=== PATIENT | female | born 1930 | race Caucasian/White ===

== ENCOUNTER → 2018-06-13 | Outpatient (CLI) | payer OTHER ==
[~2018-06-13] MED LIST: ADULT LOW DOSE81 MG PO; ADVIL PM CAPLE1 EACH PO; BENAZEPRIL HCL20 MG PO; COUMADIN 2.5MG2.5 M1 PO; CYMBALTA30 MG PO; DARVOCET-N 1001 EACH PO; DILTIAZEM 24HR180 MG PO; DILTIAZEM 24HR240 MG PO; DILTIAZEM ER120 M1 PO; FELDENE20 MG PO; FLUZONE 2045 MCG/011; HYDROCODON-ACE1 EACH PO; LIPITOR20 MG PO; OMEPRAZOLE 20 M20 MG PO; PLAVIX 75 MG TA75 MG PO; PNEUMOVAX25 MCG/0.5; PRAMIPEXOLE0.125 MG PO; REQUIP 1 MG TABL1 M1 PO; TRAMADOL HCL50 MG PO; XANAX 0.5 MG0.5 M1 PO
[2018-06-13 11:25] LABS: ALBUMIN 3.9 g/dL (3.4-5.0); ALKALINE PHOSPHATASE 92 U/L (46-116); CHOLESTEROL 176 mg/dL (<200); DIRECT BILIRUBIN 0.1 mg/dL (<0.1-0.3); HDL CHOLESTEROL 49 mg/dL (>40); LDL CHOLESTEROL 108 mg/dL (<100); SERUM ASSESSMENT Clear; SGOT 28 U/L (15-37); SGPT 21 U/L (30-65); TC:HDL 3.6 Ratio (Not establshd); TOTAL BILIRUBIN 0.5 mg/dL (<0.1-1.0); TOTAL PROTEIN 7.1 g/dL (6.4-8.2); TRIGLYCERIDE 95 mg/dL (<150); VLDL 19 mg/dL (<40)
== END ==
LOC: M.LAB 10:49
PROVIDERS: Nurse Practitioner
DX: E78.2 Mixed hyperlipidemia (principal); I10 Essential (primary) hypertension; K21.9 Gastro-esophageal reflux disease without esophagitis

== ENCOUNTER → 2019-02-08 | Outpatient (CLI) | payer OTHER ==
--- NOTE | 2019-02-08 15:39 | 2DMMODE ---
[place] [address] 2 D/M-MODE ECHOCARDIOGRAM Name: KYLEBAKARI Room: [facility]#: [id number] Admission: 02/08/19 Attend Phys: Sukhwinder Maynard, Discharge: Date of : 32 Date of Service: 02/08/19 1539 Report #: [id number] THIS REPORT FOR: //name// APPROVED REPORT Study performed: 02/08/2019 13:06:33 EXAM: Comprehensive 2D, Doppler, and color-flow Echocardiogram Patient Location: Out-Patient BSA: 1.60 HR: 69 bpm BP: 119/79 mmHg Other Information Study Quality: Good Indications Aortic Valve Disease 2D Dimensions IVSd: 13.04 (7-11mm) LVOT Diam: 20.28 (18-24mm) LVDd: 39.94 mm PWd: 7.72 (7-11mm) Ascending Ao: 36.87 (22-36mm) LVDs: 23.82 (25-40mm) Aortic Root: 28.07 mm Volumes Left Atrial Volume (Systole) LA ESV Index: 31.20 mL/m2 Aortic Valve AoV Peak Sohail.: 1.45 m/s AO Peak Gr.: 8.46 mmHg LVOT Max P.61 mmHg AO Mean Gr.: 4.27 mmHg LVOT Mean P.03 mmHg LVOT Max V: 0.81 m/s AO V2 VTI: 29.19 cm LVOT Mean V: 0.45 m/s LOBITO (VTI): 1.85 cm2 LVOT V1 VTI: 16.68 cm AI [place]: 2.06 m/s2 AI PHT: 580.72 ms Mitral Valve MV Decel. Time: 140.89 ms MV E Max Sohail.: 1.02 m/s MV PHT: 40.86 [place] [address] 2 D/M-MODE ECHOCARDIOGRAM Name: BAKARI WRIGHT Room: [facility]#: [id number] Admission: 02/08/19 Attend Phys: Sukhwinder Maynard, Discharge: Date of : 32 Date of Service: 02/08/19 1539 Report #: [id number] MVA (PHT): 5.38 cm2 TDI E/Lateral E': 7.29 E/Medial E': 7.85 Medial E' Sohail.: 0.13 m/s Lateral E' Sohail.: 0.14 m/s Pulmonary Valve PV Peak Sohail.: 0.81 m/s PV Peak Gr.: 2.62 mmHg Tricuspid Valve RAP Estimate: 5.00 mmHg TR Peak Gr.: 26.43 mmHg RVSP: 31.43 mmHg PA Pressure: 31.43 mmHg Left Ventricle The left ventricle is normal size. There is normal LV segmental wall motion. There is normal left ventricular wall thickness. Left ventricular systolic function is normal. The left ventricular ejection fraction is within the normal range. LVEF is 60-65%. The left ventricular diastolic function is normal. Right Ventricle The right ventricle is normal size. The right ventricular systolic function is normal. Atria Left atrium is mildly dilated. Right atrium is mildly dilated. Aortic Valve Aortic valve is mildlty calcified. Mild to moderate aortic regurgitation. There is no aortic valvular stenosis. Mitral Valve The mitral valve is normal in structure. Moderate mitral regurgitation. No evidence of mitral valve stenosis. Tricuspid Valve The tricuspid valve is normal in structure. Mild tricuspid regurgitation. estimated pa pressure 35 mm Hg Pulmonic Valve The pulmonary valve is normal in structure. Mild [place] [address] 2 D/M-MODE ECHOCARDIOGRAM Name: BAKARI WRIGHT Room: [facility]#: [id number] Admission: 02/08/19 Attend Phys: Sukhwinder Maynard, Discharge: Date of : 32 Date of Service: 02/08/19 1539 Report #: [id number] Great Vessels The aortic root is normal in size. IVC is normal in size and collapses >50% with inspiration. Pericardium There is no pericardial effusion. <Conclusion> LVEF is 60-65%. Left atrium is mildly dilated. Right atrium is mildly dilated. Aortic valve is mildlty calcified. Mild to moderate aortic regurgitation. Moderate mitral regurgitation. Mild tricuspid regurgitation. estimated pa pressure 35 mm Hg <ELECTRONICALLY SIGNED> By: Damian Henry MD, [facility] 02/08/19 1539 1539 1539 Damian Henry MD, FACC /INF
== END ==
LOC: M.CRD 12:48
DX: I08.8 Other rheumatic multiple valve diseases (principal); Z88.5 Allergy status to narcotic agent

== ENCOUNTER → 2020-09-24 | Outpatient (CLI) | payer OTHER ==
--- NOTE | 2020-09-24 16:24 | 2DMMODE ---
[place] [address] 2 D/M-MODE ECHOCARDIOGRAM Name: BAKARI WRIGHT Room: [facility]#: [id number] Admission: 09/24/20 Attend Phys: Sukhwinder Maynard, Discharge: Date of : 32 Date of Service: 09/24/20 1624 Report #: [id number] THIS REPORT FOR: cc: Michael Gamez Bradley L. DO Blick,Damian Hancock MD [facility] ~ APPROVED REPORT Study performed: 09/24/2020 13:32:59 EXAM: Comprehensive 2D, Doppler, and color-flow Echocardiogram Patient Location: Out-Patient BSA: 1.60 HR: 80 bpm BP: 127/78 mmHg Other Information Study Quality: Excellent Indications Mitral Valve Disease Atrial Fibrillation 2D Dimensions IVSd: 11.15 (7-11mm) LVOT Diam: 20.01 (18-24mm) LVDd: 37.51 mm PWd: 8.62 (7-11mm) Ascending Ao: 36.12 (22-36mm) LVDs: 21.33 (25-40mm) Aortic Root: 31.94 mm Volumes Left Atrial Volume (Systole) LA ESV Index: 31.60 mL/m2 Aortic Valve AoV Peak Sohail.: 1.53 m/s AO Peak Gr.: 9.37 mmHg LVOT Max P.34 mmHg AO Mean Gr.: 4.97 mmHg LVOT Mean P.42 mmHg LVOT Max V: 0.91 m/s AO V2 VTI: 31.67 cm LVOT Mean V: 0.53 m/s LOBITO (VTI): 1.87 cm2 LVOT V1 VTI: 18.84 cm AI [place]: 2.89 m/s2 AI PHT: 421.34 [place] [address] 2 D/M-MODE ECHOCARDIOGRAM Name: BAKARI WRIGHT Room: [facility]#: [id number] Admission: 09/24/20 Attend Phys: Sukhwinder Maynard, Discharge: Date of : 32 Date of Service: 09/24/20 1624 Report #: [id number] Mitral Valve E/A Ratio: 2.35 MV Decel. Time: 147.11 ms MV E Max Sohail.: 0.96 m/s MV PHT: 42.66 ms MVA (PHT): 5.16 cm2 TDI E/Lateral E': 6.40 E/Medial E': 8.73 Medial E' Sohail.: 0.11 m/s Lateral E' Sohail.: 0.15 m/s Pulmonary Valve PV Peak Sohail.: 0.73 m/s PV Peak Gr.: 2.15 mmHg Tricuspid Valve RAP Estimate: 5.00 mmHg TR Peak Gr.: 26.02 mmHg RVSP: 31.02 mmHg PA Pressure: 31.02 mmHg Left Ventricle The left ventricle is normal size. There is normal LV segmental wall motion. There is normal left ventricular wall thickness. Left ventricular systolic function is normal. The left ventricular ejection fraction is within the normal range. LVEF is 60-65%. This study is not technically sufficient to allow evaluation of the LV diastolic function due to atrial fibrillation. Right Ventricle The right ventricle is normal size. The right ventricular systolic function is normal. Atria Left atrium is mildly dilated. Right atrium is moderately dilated. Aortic Valve Mild aortic valve sclerosis. Moderate aortic regurgitation. There is no aortic valvular stenosis. Mitral Valve Mild mitral annular calcification. The mitral valve is normal in structure. Mild mitral regurgitation. No evidence [place] [address] 2 D/M-MODE ECHOCARDIOGRAM Name: BAKARI WRIGHT Room: [facility]#: [id number] Admission: 09/24/20 Attend Phys: Sukhwinder Maynard, Discharge: Date of : 32 Date of Service: 09/24/20 1624 Report #: [id number] Tricuspid Valve The tricuspid valve is normal in structure. Mild tricuspid regurgitation. estimated pa pressure 35 mm Hg Pulmonic Valve The pulmonary valve is normal in structure. Mild pulmonic regurgitation. Great Vessels The aortic root is normal in size. IVC is normal in size and collapses >50% with inspiration. Pericardium There is no pericardial effusion. <Conclusion> LVEF is 60-65%. Left atrium is mildly dilated. Mild aortic valve sclerosis. Moderate aortic regurgitation. Mild mitral regurgitation. Mild tricuspid regurgitation. estimated pa pressure 35 mm Hg <ELECTRONICALLY SIGNED> By: Damian Henry MD, FACC 09/24/20 1624 1624 1624 Damian Henry MD, FACC /INF
== END ==
LOC: M.CRD 13:28
PROVIDERS: ATTEND Internal Medicine Cardiovascular Disease
DX: I08.3 Combined rheumatic disorders of mitral, aortic and tricuspid valves (principal); I48.91 Unspecified atrial fibrillation; R55 Syncope and collapse